=== PATIENT | female | born 1945 | race Two or more races ===

== ENCOUNTER 2018-10-17 05:45 | Day surgery (SDC) | payer OTHER ==
[~2018-10-17 05:45] MED LIST: TOPROL XL25 M1 PO
[2018-10-17] MEDS ORDERED: RECTICARE30 GM TOP (08:37)
[2018-10-17] MEDS ORDERED: PERCOCET 5-3251 EACH PO (08:38)
== END 2018-10-17 13:05 | disposition home or self-care (01) ==
LOC: CIR.AMB 05:45
DX: K64.8 Other hemorrhoids (principal)